=== PATIENT | male | born 1995 | race Caucasian/White ===

== ENCOUNTER 2020-06-18 05:23 | Emergency (ER) | payer OTHER ==
[~2020-06-18] VITALS: Ht 180.3 cm; Wt 82.0 kg
[2020-06-18] MEDS ORDERED: LORAZEPAM 2MG/ML CPJ IM STA (06:15)
[2020-06-18] MEDS ORDERED: HALOPERIDOL LACTATE 5MG/ML VIAL IM ONE (06:15)
[2020-06-18 07:12] LABS: CLARITY URINE CLEAR (CLEAR); COLOR URINE DARK YELLOW (YELLOW); KETONES URINE 1+ (NEGATIVE); LEUKOCYTE ESTERASE URINE NEGATIVE (NEGATIVE); NITRITE URINE NEGATIVE (NEGATIVE); OCCULT BLOOD URINE 1+ (NEGATIVE); PH URINE 5.5 (4.5-8.0); PROTEIN URINE 2+ (NEGATIVE); SPECIFIC GRAVITY URINE 1.037 (1.005-1.030)
[2020-06-18 07:55] VITALS: BP 132/90
[2020-06-18 08:12] LABS: METHADONE URINE SCREEN NEGATIVE (NEGATIVE); OPIATES URINE SCREEN NEGATIVE (NEGATIVE)
[2020-06-18 08:14] LABS: *AMPHETAMINES SCREEN URINE PRESUMTIVE POSITIVE (NEGATIVE); *BARBITURATES SCREEN URINE NEGATIVE (NEGATIVE); *BENZODIAZEPINES SCREEN URINE NEGATIVE (NEGATIVE); *COCAINE SCREEN URINE NEGATIVE (NEGATIVE); CANNABINOID URINE SCREEN PRESUMTIVE POSITIVE (NEGATIVE); PHENCYCLIDINE URINE SCREEN NEGATIVE (NEGATIVE)
== END 2020-06-18 08:18 | disposition home or self-care (01) ==
LOC: ER 05:23
DX: F15.90 Other stimulant use, unspecified, uncomplicated (principal); I49.9 Cardiac arrhythmia, unspecified
CPT/HCPCS: 80305; 81003; 93005; 99284